=== PATIENT | female | born 1955 | race Caucasian/White ===

== ENCOUNTER 2022-11-26 06:18 | Day surgery (SDC) | payer MEDICARE, OTHER, SELFPAY ==
[2022-11-18 08:43] VITALS: BMI 24.3
[2022-11-26] VITALS (8 sets, daily range): BP systolic 99–137; BP diastolic 46–71; PULSE 63–81; RESP 12–18; TEMP 36.2–36.8; O2SAT 96–100; BMI 24.3
--- NOTE | 2022-11-26 06:00 | DI.RAD.S_ITS ---
PROCEDURE: XR HIP W PEL IF DONE LT 2V INDICATIONS: left ANH, anterior TECHNIQUE: AP pelvis and lateral view of the left hip acquired. COMPARISON: [facility], CR, [id number] W PEL IF PERFORMED, 11/26/2022, 9:13. FINDINGS: Bones: Patient is status post left hip arthroplasty, with hardware components in expected positions. The hip joint appears congruent. The visualized bony structures appear intact. Soft tissues: Overlying postoperative changes are noted. No suspicious soft tissue densities. IMPRESSION: Postoperative changes following left hip arthroplasty. Dictated by: Cheng Arrington M.D. on 11/26/2022 at 12:50 Approved by: Cheng Arrington M.D. on 11/26/2022 at 12:51
[2022-11-26] MEDS: VANCOMYCIN 1,000 MG/200 ML PIGGYBACK 200 MG IV (06:52)
[2022-11-26] MEDS: LACTATED RINGERS 1,000 ML 42 ML IV (06:56)
[2022-11-26 07:23] LABS: COVID19 -Nasal RAPID Negative (Negative)
--- NOTE | 2022-11-26 07:46 | PM.PREOP ---
Pre-operative Note Interval Note History & Physical reviewed/Exam performed by Physician: Yes Changes to H&P: No
--- NOTE | 2022-11-26 07:47 | PM.OP.1 ---
Operative Date/Time/Diagnoses Date of procedure: 11/26/22 Time of procedure: 08:00 Pre-op diagnosis: Left hip avascular necrosis Post-op diagnosis: same Procedure & Clinicians Procedure: Left total hip arthroplasty anterior approach Same procedure as scheduled: Yes Indications: The patient has had progressively worsening left hip pain with radiographic changes consistent with arthritis. Non-operative management has failed and the patient has requested total hip replacement. The risks, benefits and alternatives to surgery were discussed with the patient prior to proceeding. Risks discussed included, but were not limited to, failure to relieve pain, leg length discrepancy, dislocation, stiffness, infection, nerve damage, deep venous thrombosis, pulmonary embolism, stroke, coma, heart attack, permanent paralysis and , as well as the potential need for eventual revision of the prosthetic. Surgeon: Vaishnavi Samano Miller Head Assistant Wet Process: Temo Ruiz Anesthesia Type: General and Spinal Operative Notes Findings: Severe left hip AVN Closure Type: primary Specimen(s): none sent Prosthetic devices, grafts, tissues, transplants, or devices: Samano and nephew anthology standard offset size 8, 48 R3 cup, neutral poly liner, 32 x +0 Oxinium femoral head,one 6.5 mm screw Estimated Blood Loss (mL): 250 Procedure in detail: The patient was brought to the operating room. Patient was carefully positioned in the supine position. Time-out was performed and antibiotics were given. Anesthesia was induced. She was positioned in the on the table in order to allow hyperextension of the hip. The left lower extremity was prepped and draped in a standard sterile fashion. An anterior left hip incision was made 1 fingerbreadth lateral to the anterior superior iliac spine and extended distally towards the greater trochanter. Dissection was carried out through skin and subcutaneous tissues. Superficial hemostasis was achieved. The fascia over the tensor fascia lobito was defined and incised with a knife. Two Allis clamps were used to grasp the fascia. Tensor fascia lobito was retracted laterally. A gelpi retractor was placed. Dissection was carried out down along the neck. The circumflex vessels were carefully identified and cauterized with the Aqua Mantis. There was good visualization of the femoral neck. A Cobra was placed superior to the neck and the gluteus fibers were carefully stripped from that superior aspect of the capsule. A 2nd retractor was placed along the inferior aspect of the neck. The rectus insertion along the capsule was partially released. A 3rd retractor that was then gently placed over the rim of the acetabulum under the rectus. Capsule was carefully incised and released from the intertrochanteric line circumferentially superior to the mid sagittal line and inferiorly to the mid sagittal line until the lesser trochanter was palpable. A tag stitch was placed both in the superior and inferior limb of the capsular insertion. Along the acetabulum capsule was also released up to the mid sagittal 12:00 position. A portion of the labrum was resected. A saw was used to perform an osteotomy at the level of the intertrochanteric line and the junction of the superior femoral neck leaving approximately 1 finger breath of residual inferior neck above the lesser trochanter. A 2nd cut was made along the femoral neck at the base of the head and a napkin ring of neck was removed. Corkscrew was placed in the femoral head and the head was removed without difficulty. Retractors were then repositioned around the acetabulum. Residual labrum was resected and additional osteophytes were removed. A reamer that was 4 mm below the templated size was placed by hand in the acetabulum and it was reamed to centralize the acetabulum. It was then reamed up to 2 under the templated size and fluoroscopy was brought in to confirm the position of the reaming and depth of reaming. I reamed 1 under the anticipated size. A trial cup was placed and noted that it was appropriately sized and fluoroscopy confirmed position and depth. The component was open and inserted without difficulty fluoroscopic imaging was used to confirm that the cup had been adequately seated and was well positioned. It was further stabilized with a single screw. Neutral poly liner was placed. The cup was tested and noted to be stable. Attention was then directed to the femur. The femur was gently hyperextended additional capsular release was performed as needed in order to allow adequate visualization of the proximal femur with elevation of the femur. Patient was placed in a hyperextended slightly adducted position with maximum external rotation. Box osteotome was used to check for any residual neck as well as sclerotic bone along the trochanter. [place] pepper was placed in the femur. Additional broaching was performed. Canal finder was used to determine the alignment of the canal and position. Size 1 broach was placed. The canal was then appropriately broached up to the templated size as long as there was adequate stability of the broach and serial advancement of the broach without excessive impingement. Specific attention was directed at avoiding varus attempting to direct the distal aspect of the broach more anteriorly and avoiding excessive anteversion. Trial reduction showed acceptable range of motion, good stability, no posterior impingement, mormon of leg length and appropriate lateral shuck. I also hyperflexed the hip and checked that there was no impingement anteriorly and there was good stability with flexion, adduction and internal rotation. Marcaine and Exparel were injected.. The stem was placed without difficulty. Repeat trial reduction and x-ray showed acceptable overall position, length, and no evidence of the femoral fracture. Final head was placed. Wound was meticulously irrigated with normal saline. The hip was reduced and additional Exparel and Marcaine were injected. The capsule was closed with interrupted nonabsorbable sutures. The fascia of the tensor was closed with interrupted and running Vicryl. No drain was placed. Any tensor fascia lobito muscle that appeared to be contused or injured which was a minimal amount was carefully resected. Capsule around the tensor was injected with Exparel and Marcaine. The skin was closed with barbed stitches for the subcutaneous tissue and skin. We also used surgical glue. The wound was dressed sterilely. Brief Betadine soak was also used and was meticulously irrigated with normal saline. Patient was transferred to recovery room in satisfactory condition. Complications: none Post-operative Condition: stable Disposition: Acute Care Plan for aftercare: The patient will be maintained on a standard total hip replacement protocol with weight bearing as tolerated and anterior hip precautions. The patient will receive Aspirin and sequential compression devices for DVT prophylaxis. The patient will be discharged home when safe for the home environment.
[2022-11-26] MEDS: ACETAMINOPHEN 325 MG TABLET 975 MG PO (07:48)
[2022-11-26] MEDS: CELECOXIB 200 MG CAPSULE PO (07:48)
[2022-11-26] MEDS: CEFAZOLIN 2 GM/100 ML PREMIX 100 ML IV ×2 (08:00→16:28)
[2022-11-26] MEDS: TRANEXAMIC ACID 1,000 MG VIAL 1000 MG INJ ×2 (08:19→10:13)
--- NOTE | 2022-11-26 08:35 | SUR.OPER ---
Supine on padded [place] table with bilateral legs secured in padded positioning boots and suspended in positioning spars, operative leg in traction per surgeon. Head on one pillow. Arm on non-operative side secured on padded armboard <90 degrees abduction. Arm on operative side padded and resting across chest then secured with tape over sheet. Padded perineal post in place per surgeon. Pt positioned per direction and supervision of Dr Samano.
[2022-11-26] MEDS: BUPIVACAINE 0.25% (PF) 60 ML, EPINEPHrine 0.3 MG INJ (08:43)
[2022-11-26] MEDS: BUPIVACAINE LIPOSOME 266 MG/20 ML VIAL INJ (08:43)
[2022-11-26] MEDS: SODIUM CHLORIDE IRRIG SOLUTION 250 ML, POVIDONE-IODINE SPONGE STICKS 1 APPLIC IRR (10:13)
[2022-11-26] MEDS: ONDANSETRON 4 MG/2 ML INJ IV (10:46)
[2022-11-26] MEDS: OXYCODONE IR 5 MG TABLET PO ×2 (10:46→17:21)
--- NOTE | 2022-11-26 10:55 | DI.RAD.S_ITS ---
PROCEDURE: [id number] W PEL IF PERFORMED INDICATIONS: LEFT TOTAL HIP ARTHROPLASTY TECHNIQUE: AP pelvis with lateral view(s) of the left hip(s). COMPARISON: None. FINDINGS: Bones: Intraoperative fluoroscopic views of the left hip demonstrate left hip arthroplasty components in expected position. No unexpected fractures. Normal bone alignment. Soft tissues: Expected intraoperative appearance of soft tissues. IMPRESSION: Intraoperative fluoroscopy for left hip arthroplasty. Dictated by: Jazmin Asif M.D. on 11/26/2022 at 11:44 Approved by: Jazmin Asif M.D. on 11/26/2022 at 11:44
[2022-11-26] MEDS: ACETAMINOPHEN 325 MG TABLET 650 MG PO ×2 (12:23→17:19)
[2022-11-26] MEDS: IBUPROFEN 400 MG TABLET PO ×2 (12:23→17:18)
[2022-11-26] MEDS: LACTATED RINGERS 1,000 ML 125 ML IV (12:24)
--- NOTE | 2022-11-26 13:31 | PT.IIE ---
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) Surgery Performed Operation Date: 11/26/22 07:45 Actual Procedures p Total Hip Arthroplasty/Anterior Approach(Left) - Vaishnavi Samano MD Surgical History (Last Updated 11/18/22 @ 09:12 by Cristy Newton, RN) Hx of bilateral cataract extraction Hx of hernia repair (~1955) Hx of tonsillectomy Medical History (Last Updated 11/18/22 @ 09:16 by Cristy Newton RN) History of COVID-19 (~06/2022) HTN (hypertension) Osteoarthritis Physical Therapy Inpatient Evaluation/Re-Eval M1 PT/OT-IP Prior Functional Status Start: 11/26/22 13:38 Freq: NEEDED Status: Active Protocol: Document 11/26/22 13:31 DLM (Rec: 11/26/22 13:51 DLM [id number]) Medical Review Prior Functional Status Medical History Reviewed Yes Diet/Fluid Consistency Regular Communication WNL Mobility and Gait Independent Activities of Daily Living and IADL's Independent Social History Household Members spouse Living Arrangements House Number of Floors (Floors) Two Floors Number of Stairs To Enter/Railing? can stay on main level, 3 steps to enter with rails Home Environment Standard Height Toilet,Tub/ Shower Home Equipment Front Wheel Walker,Straight Cane,Raised Toilet Seat w/ Armrests,Grab Bars In Shower M2 PT-IP Current Condition Start: 11/26/22 13:38 Freq: NEEDED Status: Active Protocol: Document 11/26/22 13:31 DLM (Rec: 11/26/22 13:51 DL [id number]) Physical Therapy Current Condition Current Condition Evaluation Date 11/26/22 Treatment Diagnosis left ANH with anterior approach, impaired mobility/ gait Onset Date 11/26/22 M3 PT-IP Subjective Start: 11/26/22 13:38 Freq: NEEDED Status: Active Protocol: Document 11/26/22 13:31 DLM (Rec: 11/26/22 13:51 DLM [id number]) Subjective Physical Therapy Visit Type Type Initial Evaluation Visit Start Time 12:50 Visit Stop Time 13:31 Total Visit Minutes 41 Number of NURSING UNIT COORDINATOR Visits 0 Physical Therapy Visit Comments Patient Comments She reports feeling safe to discharge home today. She reports her can help her at home Patient Goals Discharge home Therapy Pain Assessment Pain When Pain Assessed After Treatment Pain Present Pain Present Pain Reported Location Left Hip Intensity 3 Scale Used Numeric (0 - 10) Description Aching,Tender,With Movement Pain Management Techniques Apply Cold,Re-positioning M4 PT-IP Mobility and Gait Start: 11/26/22 13:38 Freq: NEEDED Status: Active Protocol: Document 11/26/22 13:31 DLM (Rec: 11/26/22 13:51 DLM [id number]) PT-Bed Mobility Assessment Supine to Sit Supine to Sit Independent Sit to Supine Sit to Supine Independent Scooting Scooting to Edge of Bed Independent Scooting Up and Down in Bed Independent PT-Transfer Assessment Sit to and From Stand Sit to and from Stand Standby Assistance,Use of Upper Extremities Equipment Transfer Assistive Device Gait Belt,Front Wheeled Walker Transfers Transfer Destination Bed,Chair,Bedside Commode Transfer Technique Stand Step Pivot Transfer Ability Level of Assist Standby Assistance,Use of Upper Extremities Comments Mobility Comments She needs verbal reminders to use UE support during sit- stand. No light-headedness nor nausea this visit. She got up to bedside commode to urinate . Nursing was notified. Gait Assessment Gait Gait Assistance Required: Standby Assistance Distance (Feet) 160 Able to Maintain Weight Bearing Status Yes During Gait Assistive Devices Assistive Device Gait Belt,Front Wheeled Walker Gait Deviations General Gait Pattern Antalgic Factors Limiting Gait Function Factors Limiting Gait Function Decreased Activity Tolerance, Decreased Strength,Limited Range of Motion,Pain Comments Gait Comments She demonstrates safe use of FWW for gait, she reports mild increase in pain with gait but it did not limit her distance Stair Climbing Assessment Evaluation Level of Assist On Stairs Standby Assistance Devices Stair Climbing Assistive Devices Left Railing,Right Railing Technique/Endurance Stair Climbing Direction Ascend and Descend Stair Climbing Technique Step to Step Number of Steps Climbed 3 Query Text: Stair Climbing Set # Repetitions (reps) 1 Comments Stair Climbing Comments verbal cuing for sequencing on steps, good functional strength PT-Balance Assessment Sitting Balance and Reactions Static Sitting Balance Ability Normal Dynamic Sitting Balance Ability Normal Standing Balance and Reactions Static Standing Balance Ability Good Dynamic Standing Balance Ability Good Device Used FWW M5 PT-IP Objective Assessments Start: 11/26/22 13:38 Freq: NEEDED Status: Active Protocol: Document 11/26/22 13:31 DLM (Rec: 11/26/22 13:51 DL [id number]) Orientation Orientation/Cognition Level of Alertness Alert Orientation Name,Age,Birthday,Month,Date, Year,Day of Week,Place, Situation Language Function Ability No Deficits Noted Safety Awareness Understands Safety Issues Memory Description No Deficits Noted Gross Range of Motion Upper Extremity ROM Assessment Within Functional Limits Lower Extremity ROM Assessment Left Impaired Impairments post-op restrictions for anterior ANH Strength Upper Extremity Strength Assessment Within Functional Limits Lower Extremity Strength Assessment Left Impaired Hip flex 3-/5 with pain Knee 4/5 Ankle DF 4+/5 Coordination Assessment Gross Coordination Gross Coordination WNL Sensation Assessment Sensation Gross Sensation WNL Muscle Tone Muscle Tone WNL Yes M6 PT-IP Treatment Start: 11/26/22 13:38 Freq: NEEDED Status: Active Protocol: Document 11/26/22 13:31 DLM (Rec: 11/26/22 13:51 DL [id number]) Physical Therapy Treatment Exercises Exercises Ankle Pumps,Gluteal Sets,Quad Sets,Heel Slides Education Education Provided Precautions,Weight Bearing Status,Post-Op Packet,Safety Other Treatments Other Treatment Performed no family present this visit M7 PT-IP Assessment and Plan Start: 11/26/22 13:38 Freq: NEEDED Status: Active Protocol: Document 11/26/22 13:31 DLM (Rec: 11/26/22 13:51 [facility] [id number]) PT Summary Assessment and Plan Potential Rehabilitation Potential Excellent Status of Condition at Evaluation Evolving Summary Impairments Pain,ROM,Strength,Balance,Bed Mobility,Transfers,Gait, Activity Tolerance Progress Towards Goals Progressing Toward Goals,Safe For Discharge Assessment Summary Charis is alert and resting in bed. She reports she would like to be able to go home today. She was educated in her anterior hip precautions before mobility attempted. She is able to demonstrates safe transfers and gait with the FWW. Her pain is well controlled at this time. She was able to go up and down stairs safely with the rail. No dizziness/nausea/light- headedness this visit. She appears to be safe to discharge home today with her Spouse when medically cleared. Goals Bed Mobility Goal Independent Transfer Goal Independent,Front Wheeled Walker Gait Goal Independent,Front Wheel Walker Gait Distance 150 feet Other Goals up/down 3 steps with rails and SBA Days to Meet Goals 1 Frequency of Treatment Frequency Of Treatment Twice a Day Treatment Plan Physical Therapy Treatment Plan Bed Mobility Training,Transfer Training,Gait Training, Therapeutic Exercise,Balance Retraining,Post Op Education, Discharge Planning,Hot or Cold Pack,Neuromuscular Re-ed Other Recommendations and Next Treatment training completed this visit, Focus pt shows safe mobility/gait for discharge home Precautions Anterior Hip Precautions No Hip Extension,No Hip External Rotation Weight Bearing Status Weight Bearing Status Weight Bear as Tolerated Allowed Weight Bearing Amount (enter % left LE s/p ANH or #) (%) Recommendations To Nursing Amount of Assist Needed Standby Assistance Discharge Recommendations PT Discharge Recommendations Home with Assistance Other Discharge Recommendations appears safe to discharge home today when medically cleared, notified her nurse Transportation Needs at Discharge Private Vehicle
--- NOTE | 2022-11-26 17:06 | PM.PNPO.1 ---
Subjective Subjective Interval history: She notes she is doing extremely well with physical therapy. She is been up ambulating and has been cleared for her stairs and discharge to home. She has minimal hip pain. Exam Vital Signs (past 8 hours): - 11/26/22 10:35 11/26/22 10:40 11/26/22 10:45 Temperature 97.8 F 97.8 F 97.6 F Pulse Rate 81 73 71 Respiratory Rate 13 12 14 Blood Pressure 99/46 L 100/57 L 113/57 L Pulse Oximetry 98 98 100 Oxygen Delivery Method Room Air Room Air Room Air Oxygen Flow Rate 11/26/22 10:54 11/26/22 11:10 11/26/22 11:40 Temperature 97.6 F 97.4 F L 98.2 F Pulse Rate 73 68 Respiratory Rate 12 16 17 Blood Pressure 110/58 L 119/71 124/65 Pulse Oximetry 100 100 98 Oxygen Delivery Method Room Air Oxygen Flow Rate 0 0 11/26/22 11:40 11/26/22 12:10 11/26/22 12:00 Temperature 98.2 F 98.1 F Pulse Rate 70 78 Respiratory Rate 17 18 Blood Pressure 124/65 137/68 Pulse Oximetry 98 96 Oxygen Delivery Method Room Air Oxygen Flow Rate 0 0 Oxygen Delivery Method Room Air Oxygen Flow Rate 0 Narrative Exam Narrative: Dressings dry, she has minimal pain with range of motion she has fairly normal control of her leg in her calves are soft bilaterally. Objective Labs Labs: Laboratory Results - last 24 hr 11/26/22 06:45 SARS-CoV-2 (PCR) Negative [facility] Medical History (Updated 11/18/22 @ 09:16 by Cristy Newton RN) History of COVID-19 (~06/2022) HTN (hypertension) Osteoarthritis Surgical History (Updated 11/18/22 @ 09:12 by Cristy Newton RN) Hx of bilateral cataract extraction Hx of hernia repair (~1955) Hx of tonsillectomy Social History household members: spouse Smoking Status: Former smoker alcohol intake: current Assessment & Plan Post-op Postoperative Procedures: Procedures Operation Date: 11/26/22 07:45 Actual Procedure Side Surgeon p Total Hip Arthroplasty/Anterior Approach Left Vaishnavi Samano MD Postoperative status narrative: She is doing well postoperatively I think it is okay for her to be discharged to home. She is happy and anxious go home and will be careful not to fall. Quality VTE Deep Vein Thrombosis/Pulmonary Embolism Present on Admission: No
--- NOTE | 2022-11-26 19:05 | PC.NURSE ---
Discharge: Pt has tolerated diet w/out problems. Has been able to void. Po pain meds have been effective. Follows her ant hip precautions. Seen by PT and passed, is safe when up. Dr. Samano called and notified pt had met requirements for d/c and she would like to go home. Dr. Samano came and saw pt and gave d/c instructions. Reviewed d/c packet w/pt. She understands her anesthetic in the hip will wear off over the next couple of days so she may have more pain tomorrow. Discussed asa twice daily. Feels comfortable using her walker. Rx has been esent. Discussed wound care and if dressing gets wet she is to call office to have it changed. Questions answered. Pt d/c to home via auto w/spouse.
== END 2022-11-26 18:15 | disposition home or self-care (01) ==
LOC: OR 06:20 → AC 06:21
PROVIDERS: PCP Family Medicine; Referring Provider Orthopaedic Surgery; Visit Provider Orthopaedic Surgery
PROC: (CPT 27130; principal; 2022-11-26 07:45)
DX: M16.12 Unilateral primary osteoarthritis, left hip (principal); Z20.822 Contact with and (suspected) exposure to COVID-19
CPT/HCPCS: 27130; 73502; 73503; 76000; 87635; 97110; 97162; C1776; C9803; C9290; J0171; J0690; J1100; J2250; J2405; J2704; J3010